=== PATIENT | male | born 1965 | race African-American/Black ===

== ENCOUNTER 2018-07-12 01:48 | Emergency (ER) | payer OTHER ==
[~2018-07-12] VITALS: Ht 172.7 cm; Wt 65.8 kg
[~2018-07-12 01:48] MED LIST: ASPIRIN81 MG ORAL; BACTRIM DOUBLE S1 E1 ORAL; BUMEX PO; DIGOXIN125 MCG ORAL; ENALAPRIL MALE2.5 MG ORAL; GABAPENTIN100 MG ORAL; METHADONE HCL5 MG PO; METOPROLOL SUCC25 MG ORAL; PANTOPRAZOLE SO40 MG ORAL; SENEXON-S TABL1 EACH ORAL; SPIRONOLACTONE25 MG ORAL
--- NOTE | 2018-07-12 02:11 | Emergency Room Report ---
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 His ejection fraction is about 15-20%. He was just recently admitted and recommended an AICD placement. Patient has chronic chest pain. He presents with chief complaint of chest pain. His been ongoing for months. Pain got worse tonight after an argument with his . He's also just ran out of all of his cardiac medicine yesterday. Denies any fever chills or pain is sharp in nature. No radiation. No exertional component. No diaphoresis. No other complaint. EMS gave him aspirin and nitroglycerin without much relief. Allergies: Coded Allergies: No Known Allergies (Unverified , 07/04/18) Patient History Past Medical History: see triage record, old chart reviewed, CHF Past Surgical History: other Pertinent Family History: none Social History: Reports: drug use - history of cocaine abuse Immunizations: other Reviewed Nursing Documentation: PMH: Agreed; PSxH: Agreed Nursing Documentation-PMH Hx Cardiac Problems: Yes - HTN, Cardiomyopathy Hx Hypertension: Yes Hx Cancer: No Hx Gastrointestinal Problems: No Hx Neurological Problems: No Review of Systems Eye: Denies: eye pain, blurred vision ENT: Denies: ear pain, nose congestion, throat swelling Respiratory: Denies: cough, shortness of breath Cardiovascular: Reports: chest pain; Denies: palpitations Gastrointestinal: Denies: abdominal pain, diarrhea, nausea, vomiting Musculoskeletal: Denies: back pain, joint pain Skin: Denies: rash Neurological: Denies: headache, numbness Endocrine: Denies: increased thirst, increased urine Hematologic/Lymphatic: Denies: easy bruising All Other Systems: negative except mentioned in HPI Physical Exam Vital Signs Date Time Temp Pulse Resp B/P (MAP) Pulse Ox O2 Delivery O2 Flow Rate FiO2 07/12/18 01:49 98.0 108 20 108/74 98 Nasal Cannula 2.0 98.1 vitals with tachycardia Sp02 EP Interpretation: reviewed, normal General Appearance: well appearing, no apparent distress, alert Head: normocephalic, atraumatic Eyes: bilateral eye PERRL, bilateral eye EOMI ENT: hearing grossly normal, normal pharynx Neck: full range of motion, supple, no meningismus Respiratory: chest non-tender, lungs clear, normal breath sounds Cardiovascular #1: regular rate, rhythm, no murmur Gastrointestinal: normal bowel sounds, non tender, no mass, no organomegaly, no bruit, non-distended Musculoskeletal: back normal, gait/station normal, normal range of motion Psychiatric: mood/affect normal Skin: warm/dry Medical Decision Making Diagnostic Impression: Primary Impression: Cardiomyopathy Qualified Codes: I42.7 - Cardiomyopathy due to drug and external agent Additional Impressions: CHF exacerbation Qualified Codes: I50.9 - Heart failure, unspecified Medication refill ER Course Patient with cardiomyopathy. Labs are much improved since discharge. He will need refills on his medication. We'll discharge home. EKG Diagnostic Results Rate: tachycardiac Rhythm: NSR ST Segments: other - TWI Rhythm Strip Diag. Results Rhythm Strip Time: 02:10 EP Interpretation: yes Rate: 98 Rhythm: NSR, no PVC's, no ectopy Chest X-Ray Diagnostic Results Chest X-Ray Diagnostic Results : Chest X-Ray Ordered: Yes # of Views/Limited/Complete: 1 View Indication: Chest Pain EP Interpretation: Yes Interpretation: no consolidation, no effusion, no pneumothorax, no acute cardiopulmonary disease, other - CM Impression: Other - CM Electronically Signed by: Demond Yepez MD Last Vital Signs Date Time Temp Pulse Resp B/P (MAP) Pulse Ox O2 Delivery O2 Flow Rate FiO2 07/12/18 01:49 98.0 108 20 108/74 98 Nasal Cannula 2.0 98.1 Status: improved Disposition: HOME, SELF-CARE Condition: Stable Scripts Aspirin* (ASPIR 81*) 81 Mg Tablet. 81 MG ORAL DAILY, #30 TAB Prov: DEMOND YEPEZ M.D. 07/12/18 Spironolactone* (ALDACTONE*) 25 Mg Tablet 25 MG ORAL DAILY, #30 TAB Prov: DEMOND YEPEZ M.D. 07/12/18 Metoprolol Succinate* (METOPROLOL SUCCINATE*) 25 Mg Tab.er.24h 25 MG ORAL BID, #60 TAB Prov: DEMOND YEPEZ M.D. 07/12/18 Enalapril Maleate* (ENALAPRIL MALEATE*) 2.5 Mg Tablet 2.5 MG ORAL EVERY 12 HOURS, #30 TAB Prov: DEMOND YEPEZ M.D. 07/12/18 Pantoprazole* (PROTONIX*) 40 Mg Tablet. 40 MG ORAL DAILY, #30 TAB Prov: DEMOND YEPEZ M.D. 07/12/18 Bumetanide* (BUMETANIDE*) 1 Mg Tablet 1 MG ORAL DAILY, #30 TAB Prov: DEMOND YEPEZ M.D. 07/12/18 Digoxin* (DIGOXIN*) 125 Mcg Tablet 125 MCG ORAL DAILY, #30 TAB Prov: DEMOND YEPEZ M.D. 07/12/18 Patient Instructions: Nonspecific Chest Pain Additional Instructions: Follow-up with your doctor in 7 days. Return if symptom worsen. DEMOND YEPEZ M.D. Jul 12, 2018 02:11
[2018-07-12 02:15] VITALS: BP 108/74
[2018-07-12 02:34] LABS: BASOPHILS % (AUTO) 0.9 % (0.0-2.0); EOSINOPHILS % (AUTO) 1.9 % (0.0-3.0); HEMOGLOBIN 13.6 G/DL (14.2-18.0); LYMPHOCYTES % (AUTO) 27.3 % (20.0-45.0); MEAN CORPUSCULAR VOLUME 91 FL (80-99); MONOCYTES % (AUTO) 8.1 % (1.0-10.0); NEUTROPHILS % (AUTO) 61.8 % (45.0-75.0); PLATELET COUNT 176 K/UL (150-450); RED BLOOD COUNT 4.59 M/UL (4.70-6.10); WHITE BLOOD COUNT 4.2 K/UL (4.8-10.8)
[2018-07-12 02:46] LABS: ANION GAP 8 mmol/L (5-15); BLOOD UREA NITROGEN 15 mg/dL (7-18); CALCIUM 8.9 MG/DL (8.5-10.1); CARBON DIOXIDE 22 MMOL/L (21-32); CHLORIDE 105 MMOL/L (98-107); POTASSIUM 4.3 MMOL/L (3.5-5.1); SODIUM 135 MMOL/L (136-145)
[2018-07-12] MEDS ORDERED: DIGOXIN125 MCG ORAL (03:27)
[2018-07-12] MEDS ORDERED: BUMETANIDE1 MG ORAL (03:27)
[2018-07-12] MEDS ORDERED: ASPIR 8181 MG ORAL (03:27)
[2018-07-12] MEDS ORDERED: ENALAPRIL MALE2.5 MG ORAL (03:27)
[2018-07-12] MEDS ORDERED: METOPROLOL SUCC25 MG ORAL (03:27)
[2018-07-12] MEDS ORDERED: PROTONIX40 MG ORAL (03:27)
[2018-07-12] MEDS ORDERED: SPIRONOLACTONE25 MG ORAL (03:27)
--- NOTE | 2018-07-12 03:30 | Diagnostic Imaging Report ---
EXAM: XR Chest, 1 View. CLINICAL HISTORY: Chest pain TECHNIQUE: Frontal view of the chest. COMPARISON: 07/04/18. FINDINGS: Lungs: No definite airspace consolidation. Mild atelectasis or scarring is seen in both lung bases. There is mild pulmonary vascular congestion though no significant interstitial edema Pleural spaces: Blunting of the right lateral costophrenic angle likely due to scarring or a small right pleural effusion. No pneumothorax. Heart: Cardiac silhouette is moderately enlarged, increased when compared to the prior exam one week ago. Mediastinum: No mediastinal widening or shift. Bones: Unremarkable. No acute fracture. IMPRESSION: Increased size of cardiac silhouette since prior exam one week ago. This may be partially accentuated by low lung volumes though consider further evaluation with CT of the chest to exclude developing pericardial effusion. No definite airspace consolidation. Mild bibasilar scarring or atelectasis. Questionable right pleural effusion.
[2018-07-12 04:01] VITALS: BP_SYST 108; BP_SYST 110; BP_DIAS 74; BP_DIAS 93
--- NOTE | 2018-07-13 15:53 | Cardiology Report ---
APPROVED REPORT EKG Measurement Heart [id number] Sinus tachycardia Possible Left atrial enlargement Rightward axis T wave abnormality, consider lateral ischemia Abnormal ECG
== END 2018-07-12 04:07 | disposition home or self-care (01) ==
LOC: EDBD 01:48 → EMR 01:59
DX: I11.0 Hypertensive heart disease with heart failure (principal); I43 Cardiomyopathy in diseases classified elsewhere; I50.9 Heart failure, unspecified
CPT/HCPCS: 36415; 71045; 80048; 83880; 84484; 85025; 93005; 96374; 99284; J1940